=== PATIENT | male | born 1960 | race Caucasian/White ===

== ENCOUNTER 2023-09-11 19:24 | Inpatient (IN) | payer OTHER ==
[2023-09-11 21:54] VITALS: BMI 32.5
[2023-09-11] MEDS: Potassium Chloride 20 MEQ in Lactated Ringer's 1,000 ML IV SCH (22:06)
[2023-09-11] MEDS: Magnesium Sulfate/D5W 1 GM in Premix 1 BAG IVPB SCH (22:06)
[2023-09-11] MEDS: hydrALAZINE 20 MG/ML VIAL SLOW IVP PRN (22:20)
[2023-09-11] MEDS: Morphine 4 MG/ML VIAL SLOW IVP PRN (22:20)
[2023-09-12 05:02] LABS: #Eosinphils 0.1 10x3/uL (0.0-0.5); #Monocytes 0.9 10x3/uL (0.0-1.1); #Neutrophils 8.5 10x3/uL (1.5-8.4); %Basophils 0.2 % (0.0-2.0); %Eosinophils 0.7 % (0.0-6.0); %Monocytes 8.2 % (0.0-10.0); %Neutrophils 79.4 % (40.0-75.0); Hematocrit 45.4 % (38.8-50.0); Hemoglobin 15.6 g/dL (13.5-17.5); Mean Corpuscular HGB CONC 34.4 g/dL (32.0-36.0); Mean Corpuscular Hemoglobin 30.5 pg (27.0-33.0); Mean Corpuscular Volume 88.7 fl (81.2-95.1); Platelet Count 176 10x3/uL (150-450); RBC Distribution Width 13.1 % (11.5-14.5); Red Blood Cell (RBC) Count 5.12 10x6/uL (4.32-5.72); White Blood Cell (WBC) Count 10.7 10x3/uL (3.5-10.5)
[2023-09-12 05:21] LABS: Anion Gap 11 mmol/L (10-20); BUN (Urea Nitrogen) 11 mg/dL (8.4-25.7); Calc. Creatinine Clearance 155 mL/min (70-130); Calcium 8.4 mg/dL (7.8-10.44); Carbon Dioxide 23 mmol/L (23-31); Chloride 108 mmol/L (98-107); Estimated GFR 104; Glucose 109 mg/dL (80-115); Potassium 3.6 mmol/L (3.5-5.1); Sodium 138 mmol/L (136-145)
[2023-09-12] MEDS: Aspirin 300 MG Suppository PR SCH (10:06)
[2023-09-12] MEDS: Enoxaparin 40 MG (0.4 mL) SYRINGE SC SCH (10:10)
[2023-09-12] MEDS: Ondansetron PF 4 MG/2 ML Vial IVP PRN (10:37)
[2023-09-12] MEDS: Morphine 2 MG/ML VIAL SLOW IVP PRN (18:02)
[2023-09-13] MEDS: Labetalol HCl 100 MG/20 ML VIAL SLOW IVP SCH ×2 (00:02→01:16)
[2023-09-13 06:39] LABS: %Basophils 0.2 % (0.0-2.0); %Eosinophils 0.4 % (0.0-6.0); %Lymphocytes 8.9 % (18.0-47.0); %Monocytes 8.9 % (0.0-10.0); %Neutrophils 81.3 % (40.0-75.0); Hematocrit 43.4 % (38.8-50.0); Hemoglobin 14.8 g/dL (13.5-17.5); Mean Corpuscular HGB CONC 34.1 g/dL (32.0-36.0); Mean Corpuscular Hemoglobin 30.7 pg (27.0-33.0); Platelet Count 188 10x3/uL (150-450); RBC Distribution Width 13.8 % (11.5-14.5); Red Blood Cell (RBC) Count 4.82 10x6/uL (4.32-5.72)
[2023-09-13 06:53] LABS: Anion Gap 15 mmol/L (10-20); BUN (Urea Nitrogen) 15 mg/dL (8.4-25.7); Calc. Creatinine Clearance 140 mL/min (70-130); Calcium 8.9 mg/dL (7.8-10.44); Carbon Dioxide 23 mmol/L (23-31); Chloride 107 mmol/L (98-107); Estimated GFR 100; Glucose 106 mg/dL (80-115); Sodium 141 mmol/L (136-145)
[2023-09-13] MEDS: dilTIAZem CD 240 MG CAP PO SCH (09:43)
[2023-09-13] MEDS: Aspirin 81 mg Enteric Coated Tablet PO SCH (09:43)
[2023-09-13] MEDS: Metoprolol Tartrate 25 MG TAB PO SCH (09:44)
[2023-09-13] MEDS: Gabapentin 300 MG CAP PO SCH (09:44)
[2023-09-13] MEDS: traMADol HCl 50 MG TAB PO SCH (11:19)
[2023-09-13 11:27] VITALS: BP 173/112; TEMP 99.3
[2023-09-13] MEDS ORDERED: Rosuvastatin 20 MG TAB PO SCH (21:00)
== END 2023-09-13 13:35 | disposition home or self-care (01) | DRG 390 ==
LOC: CSHTELE 20:30
PROVIDERS: ADMIT Family Medicine; ATTEND Internal Medicine
PROC: 0DH67UZ Insertion of Feeding Device into Stomach, Via Natural or Artificial Opening (ICD-10-PCS; principal; 2023-09-11)
PROC: 0D9670Z Drainage of Stomach with Drainage Device, Via Natural or Artificial Opening (ICD-10-PCS; 2023-09-11)
DX: K56.600 Partial intestinal obstruction, unspecified as to cause (principal); I48.0 Paroxysmal atrial fibrillation; I10 Essential (primary) hypertension; E78.5 Hyperlipidemia, unspecified; F17.210 Nicotine dependence, cigarettes, uncomplicated; Z93.2 Ileostomy status; Z90.49 Acquired absence of other specified parts of digestive tract; Z90.89 Acquired absence of other organs; Z98.890 Other specified postprocedural states; Z82.49 Family history of ischemic heart disease and other diseases of the circulatory system
CPT/HCPCS: 36415; 74018; 74250; 80048; 83735; 85025; 94760; J0360; J1650; J2270; J2272; J2405; J3475; J3480; J7120